=== PATIENT | female | born 1985 | race Hispanic/Latino ===

== ENCOUNTER 2017-09-26 18:07 | Emergency (ER) | payer OTHER, SELFPAY ==
--- OUTSIDE RECORDS SUMMARY | 2017-09-26 18:08 | XMS REPORT ---
:1985 [facility] [address] [place] [address] Care Team Providers Name Role Phone JAMIE TAVAREZDREW ADAMS Unavailable Unavailable Problems This patient has no known problems. Allergies, Adverse Reactions, Alerts This patient has no known allergies or adverse reactions. Medications This patient has no known medications. Results Test Description Test Time Test Comments Text Results Atomic Results Result Comments CREATINE KINASE (CK), TOTAL AND MB 2017-02-06 18:43:00 Test Item Value Reference Range Comments CREATINE KINASE TOTAL (BEAKER) (test ascy=003) 190 U/L 29-200 CREATINE KINASE-MB (BEAKER) (test ecij=708) 1.3 ng/mL 0.0-6.6 CREATINE KINASE-MB INDEX (BEAKER) (test rjlv=557) 0.7 % Effective 05/22/2014: CK-MB Reference Range ChangeNew: 0.0-6.6 Previous: 0.0- 4.9CK-MB Reference Range:<6.7 Normal6.7-10.0 Borderline>10.0 AbnormalTROPONIN [id number] 18:43:00 Test Item Value Reference Range Comments TROPONIN I (BEAKER) (test xrpi=342) < ng/mL 0.00-0.03 Effective 05/22/2014: Reference Range ChangeNew: 0.00-0.03 Previous 0.00- 0.15Troponin I (TnI) levels must be interpreted in the context of the presenting symptoms and the clinical findings. Elevated TnI levels indicate myocardial damage, but are not specific for ischemic heart disease. Elevated TnI levels are seen in patients with other cardiac conditions (including myocarditis and congestive heartfailure), and slight TnI elevations occur in patients with other conditions, including sepsis, renalfailure, acidosis, acute neurological disease, and persistent tachyarrhythmia.BASIC METABOLIC [id number] 18:39:00 Test Item Value Reference Range Comments SODIUM (BEAKER) (test 140 meq/L 136-145 cqgu=079) POTASSIUM (BEAKER) (test 3.8 meq/L 3.5-5.1 hlmu=437) CHLORIDE (BEAKER) (test 108 meq/L 98-107 fsku=343) CO2 (BEAKER) (test 23 meq/L 22-29 rbyx=790) BLOOD UREA NITROGEN 12 mg/dL 7-21 (BEAKER) (test pwmq=989) CREATININE (BEAKER) (test 0.60 mg/dL 0.57-1.25 bkcx=283) GLUCOSE RANDOM (BEAKER) 117 mg/dL 70-105 (test rqwr=812) CALCIUM (BEAKER) (test 8.7 mg/dL 8.4-10.2 aiwx=931) EGFR (BEAKER) (test mL/min/1.73 sq m INSUFFICIENT CLINICAL DATA pezc=1696) TO CALCULATE ESTIMATED GFR. CBC W/PLT COUNT & AUTO [id number] 18:12:00 Test Item Value Reference Range Comments WHITE BLOOD CELL COUNT (BEAKER) (test kgwt=180) 8.2 K/ L 3.5-10.5 RED BLOOD CELL COUNT (BEAKER) (test mrpp=696) 3.39 M/ L 3.93-5.22 HEMOGLOBIN (BEAKER) (test eyrm=651) 9.0 GM/DL 11.2-15.7 HEMATOCRIT (BEAKER) (test twlf=120) 28.6 % 34.1-44.9 MEAN CORPUSCULAR VOLUME (BEAKER) (test clpe=155) 84.4 fL 79.4-94.8 MEAN CORPUSCULAR HEMOGLOBIN (BEAKER) (test 26.5 pg 25.6-32.2 nbob=041) MEAN CORPUSCULAR HEMOGLOBIN CONC (BEAKER) (test 31.5 GM/DL 32.2-35.5 jwds=519) RED CELL DISTRIBUTION WIDTH (BEAKER) (test 13.8 % 11.7-14.4 esgg=752) PLATELET COUNT (BEAKER) (test dxwc=412) 289 K/CU MM 150-450 MEAN PLATELET VOLUME (BEAKER) (test egwc=152) 9.8 fL 9.4-12.3 NUCLEATED RED BLOOD CELLS (BEAKER) (test 0 /100 WBC 0-0 inpq=605) NEUTROPHILS RELATIVE PERCENT (BEAKER) (test 63 % rcig=025) LYMPHOCYTES RELATIVE PERCENT (BEAKER) (test 28 % ijwg=087) MONOCYTES RELATIVE PERCENT (BEAKER) (test 6 % wkvn=960) EOSINOPHILS RELATIVE PERCENT (BEAKER) (test 1 % aiwd=676) BASOPHILS RELATIVE PERCENT (BEAKER) (test 0 % igtq=456) NEUTROPHILS ABSOLUTE COUNT (BEAKER) (test 5.14 K/ L 1.56-6.13 atsg=004) LYMPHOCYTES ABSOLUTE COUNT (BEAKER) (test 2.28 K/ L 1.18-3.74 wbzy=776) MONOCYTES ABSOLUTE COUNT (BEAKER) (test 0.50 K/ L 0.24-0.36 wnvh=363) EOSINOPHILS ABSOLUTE COUNT (BEAKER) (test 0.07 K/ L 0.04-0.36 vcnz=889) BASOPHILS ABSOLUTE COUNT (BEAKER) (test 0.02 K/ L 0.01-0.08 pzoy=945) IMMATURE GRANULOCYTES-RELATIVE PERCENT (BEAKER) 2 % 0-1 (test dpwy=6919)
[2017-09-26] MEDS ORDERED: NA CHLORIDE 0.9% 1,000 ML ONE (18:48)
[2017-09-26] MEDS ORDERED: ONDANSETRON 4 MG/2 ML VIAL ONE (18:48)
[2017-09-26 18:57] LABS: Absolute Lymphocytes (CBC) 0.7 K/uL (0.7-4.9); Absolute Monocytes 0.4 K/uL (0.1-1.3); Absolute Neutrophil 9.8 K/uL (1.8-8.0); Basophils % 0.2 % (0-1.3); Eosinophils % 1.3 % (0-4.4); Hematocrit 40.1 % (36.0-45.0); Lymphocytes % 6.1 % (15.3-44.8); MCH 26.5 pg (27.0-35.0); MCV 80.2 fL (80-100); MPV 9.1 fL (7.6-11.3); Monocytes % 3.9 % (3.3-12.3); RBC Red Blood Cell Count 4.99 M/uL (3.86-4.86)
[2017-09-26 19:04] LABS: Bicarbonate 20 mEq/L (21-31); Glucose Level 113 mg/dL (65-120); Lipase 19 U/L (22-51); Potassium 3.6 mEq/L (3.6-5.0); Sodium Level 136 mEq/L (135-145)
[2017-09-26 19:11] LABS: ALT/SGPT 13 IU/L (10-60); AST/SGOT 20 IU/L (10-42); Albumin 4.1 g/dL (3.2-5.5); Alkaline Phosphatase 80 IU/L (42-121); Amylase Level 69 U/L (28-100); BUN Blood Urea Nitrogen 13 mg/dL (6-20); Bilirubin Direct 0.1 mg/dL (0-0.2); Bilirubin Total 0.7 mg/dL (0.3-1.2); Protein, Total 7.3 g/dL (6.0-8.3)
[2017-09-26 19:17] LABS: Urine Blood 2+ (NEG); Urine Glucose NEGATIVE (NEG); Urine Protein TRACE (NEG); Urine Specific Gravity >1.030 (1.005-1.030)
[2017-09-26 19:54] LABS: Urine Bacteria <20 /HPF (<20); Urine Culture Reflex Order NOT NEEDED; Urine RBC <5 /HPF (NONE SEEN)
--- NOTE | 2017-09-26 20:00 | EDPHYS ---
Physician Documentation [facility] Name: Brenda Tyler Age: 32 yrs Sex: Female : 1985 Arrival Date: 09/26/2017 Time: 18:08 Bed 28 Private MD: ED Physician Wang Villar HPI: 09/26 18:23 This 32 yrs old Female presents to ER via Ambulatory with complaints of kb Nausea/Vomiting/Diarrhea. 18:23 The patient presents to the emergency department with nausea, vomiting, diarrhea. kb Onset: The symptoms/episode began/occurred this morning. Possible causes: unknown. The symptoms are aggravated by food , The symptoms are alleviated by nothing. Associated signs and symptoms: Pertinent positives: diarrhea, nausea, vomiting, Pertinent negatives: abdominal pain, anorexia, belching, constipation, dysuria, fever, flatulence, GI bleeding, hematuria. Severity of symptoms: At their worst the symptoms were mild moderate in the emergency department the symptoms are unchanged. The patient has not experienced similar symptoms in the past. The patient has not recently seen a physician. 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 - Social history:: Smoking status: Patient/guardian denies using tobacco, never smoked. ROS: 18:22 Constitutional: Negative for fever, chills, and weight loss, Cardiovascular: Negative kb for chest pain, palpitations, and edema, Respiratory: Negative for shortness of breath, cough, wheezing, and pleuritic chest pain, Back: Negative for injury and pain, : Negative for injury, bleeding, discharge, and swelling, MS/Extremity: Negative for injury and deformity, Skin: Negative for injury, rash, and discoloration, Neuro: Negative for headache, weakness, numbness, tingling, and seizure. 18:22 Abdomen/GI: Positive for abdominal pain, nausea, vomiting, and diarrhea, Negative for constipation, abdominal cramps, abdominal distension, anorexia. Exam: 18:22 Constitutional: This is a well developed, well nourished patient who is awake, alert, kb and in no acute distress. Head/Face: Normocephalic, atraumatic. Chest/axilla: Normal chest wall appearance and motion. Nontender with no deformity. No lesions are appreciated. Cardiovascular: Regular rate and rhythm with a normal S1 and S2. No gallops, murmurs, or rubs. Normal PMI, no JVD. No pulse deficits. Respiratory: Lungs have equal breath sounds bilaterally, clear to auscultation and percussion. No rales, rhonchi or wheezes noted. No increased work of breathing, no retractions or nasal flaring. Abdomen/GI: Soft, non-tender, with normal bowel sounds. No distension or tympany. No guarding or rebound. No evidence of tenderness throughout. Back: No spinal tenderness. No costovertebral tenderness. Full range of motion. Skin: Warm, dry with normal turgor. Normal color with no rashes, no lesions, and no evidence of cellulitis. MS/ Extremity: Pulses equal, no cyanosis. Neurovascular intact. Full, normal range of motion. Neuro: Awake and alert, GCS 15, oriented to person, place, time, and situation. Cranial nerves II-XII grossly intact. Motor strength 5/5 in all extremities. Sensory grossly intact. Cerebellar exam normal. Normal gait. Vital Signs: 18:22 BP 110 / 76; Pulse 98; Resp 17; Temp 98.8; Pulse Ox 97% ; Weight 56.7 kg; Height 4 ft. rk2 10 in. (147.32 cm); 18:45 BP 109 / 72; Pulse 87; Resp 16; Pulse Ox 98% on R/A; rk2 19:47 BP 114 / 66; Pulse 82; Resp 16; Pulse Ox 100% on R/A; rk2 18:22 Body Mass Index 26.12 (56.70 kg, 147.32 cm) rk2 MDM: 18:12 Patient medically screened. kb 18:22 Data reviewed: vital signs, nurses notes. Data interpreted: Pulse oximetry: on room air kb is 100 %. Interpretation: normal. 19:59 Counseling: I had a detailed discussion with the patient and/or guardian regarding: the kb historical points, exam findings, and any diagnostic results supporting the discharge/admit diagnosis, lab results, the need for outpatient follow up, a family practitioner, to return to the emergency department if symptoms worsen or persist or if there are any questions or concerns that arise at home. 09/26 18:22 Order name: Amylase, Serum kb 09/26 18:22 Order name: Basic Metabolic Panel kb 09/26 18:22 Order name: CBC with Diff kb 09/26 18:22 Order name: Hepatic Function kb 09/26 18:22 Order name: Lipase kb 09/26 18:22 Order name: Urine Microscopic Only kb 09/26 19:05 Order name: Basic Metabolic Panel; Complete Time: 19:11 EDMS 09/26 19:05 Order name: Lipase; Complete Time: 19:11 EDMS 09/26 19:08 Order name: CBC with Automated Diff EDRI 09/26 19:11 Order name: Liver (Hepatic) Function; Complete Time: 19:11 EDMS 09/26 19:11 Order name: Amylase Level; Complete Time: 19:11 EDMS 09/26 19:15 Order name: Urine Dipstick--Ancillary (enter results) 09/26 19:15 Order name: Urine --Ancillary (enter results) 09/26 19:17 Order name: Urine --Ancillary; Complete Time: 19:22 EDMS 09/26 18:22 Order name: Urine Test (obtain specimen); Complete Time: 19:12 kb 09/26 18:22 Order name: IV Saline Lock; Complete Time: 18:36 kb 09/26 18:22 Order name: Labs collected and sent; Complete Time: 18:36 kb 09/26 18:22 Order name: Urine Dipstick-Ancillary (obtain specimen); Complete Time: 19:09 kb 09/26 19:12 Order name: PO challenge; Complete Time: 19:39 kb 09/26 19:17 Order name: Urine Dipstick-Ancillary; Complete Time: 19:22 EDMS 09/26 19:55 Order name: Urine Microscopic Only; Complete Time: 19:58 EDMS Administered Medications: 18:36 Drug: NS 0.9% 1000 ml Route: IV; Rate: 1000 ml; Site: right antecubital; rk2 19:30 Follow up: IV Status: Completed infusion rk2 19:30 Follow up: Response: No adverse reaction; IV Status: Completed infusion rk2 18:36 Drug: Zofran 4 mg Route: IVP; Site: right antecubital; rk2 19:38 Follow up: Response: No adverse reaction; Nausea is decreased rk2 Disposition: 09/26/17 19:59 Discharged to Home. Impression: Noninfective gastroenteritis and colitis, unspecified. - Condition is Stable. - Discharge Instructions: Food Choices to Help Relieve Diarrhea, Adult, Viral Gastroenteritis. - Prescriptions for Zofran 4 mg Oral Tablet - take 1 tablet by ORAL route every 6 hours As needed; 20 tablet. - Medication Reconciliation Form, Thank You Letter, Antibiotic Education, Prescription Opioid Use form. - Follow up: Emergency Department; When: As needed; Reason: Worsening of condition. Follow up: Private Physician; When: 2 - 3 days; Reason: Recheck today's complaints, Continuance of care, Re-evaluation by your physician. Addendum: 09/30/2017 07:27 Co-signature as Attending Physician, Wang Villar MD. g s Signatures: Dispatcher [employer] EDRI Cathy Rizo, TRAVELING PHLEBOTOMIST-C TRAVELING PHLEBOTOMIST-Ckb Wang Villar MD MD gs Kidder, Rhonda RN RN rk2
--- NOTE | 2017-09-26 20:00 | ER ---
Nurse's Notes [facility] Name: Brenda Tyler Age: 32 yrs Sex: Female : 1985 Arrival Date: 09/26/2017 Time: 18:08 Bed 28 Private MD: Diagnosis: Noninfective gastroenteritis and colitis, unspecified Presentation: 09/26 18:20 Presenting complaint: Patient states: Pt. c/o N/V/D, onset this a.m.... Back pain; rk2 which she normally has. Transition of care: patient was not received from another setting of care. Onset of symptoms was September 26, 2017. Care prior to arrival: None. 18:20 Method Of Arrival: Ambulatory rk2 18:20 Acuity: MAYKEL 3 rk2 Triage Assessment: 18:22 General: Appears in no apparent distress. slender, well groomed, well developed, well rk2 nourished, Behavior is calm, cooperative. Pain: Complains of pain in back. Neuro: Level of Consciousness is alert, obeys commands, Oriented to person, place, time, situation. Respiratory: Airway is patent Respiratory effort is even, unlabored, Respiratory pattern is regular, symmetrical. GI: Reports diarrhea, nausea, vomiting. 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 - Social history:: Smoking status: Patient/guardian denies using tobacco, never smoked. Screenin:25 Abuse screen: Denies threats or abuse. Nutritional screening: No deficits noted. rk2 Tuberculosis screening: No symptoms or risk factors identified. Fall Risk None identified. Assessment: 18:30 GI: Reports diarrhea, nausea, vomiting. rk2 19:10 Reassessment: Pt. resting in room, iv fluids infusing. Pt. has had improvement with rk2 nausea after medication. Pt. appears to be in no obvious distress \T\ this time. No needs voiced. 19:44 GI: Abdomen is flat. rk2 19:44 Reassessment: Pt. able to keep fluids down, nausea has improved. rk2 Vital Signs: 18:22 BP 110 / 76; Pulse 98; Resp 17; Temp 98.8; Pulse Ox 97% ; Weight 56.7 kg; Height 4 ft. rk2 10 in. (147.32 cm); 18:45 BP 109 / 72; Pulse 87; Resp 16; Pulse Ox 98% on R/A; rk2 19:47 BP 114 / 66; Pulse 82; Resp 16; Pulse Ox 100% on R/A; rk2 18:22 Body Mass Index 26.12 (56.70 kg, 147.32 cm) rk2 ED Course: 18:08 Patient arrived in ED. as 18:12 Cathy Rizo FNP-C is [facility]. kb 18:12 Wang Villar MD is Attending Physician. kb 18:20 Torrie Crain, RN is Primary Nurse. rk2 18:21 Triage completed. rk2 18:22 Arm band placed on. rk2 18:25 Patient has correct armband on for positive identification. Bed in low position. Call rk2 light in reach. 20:08 No provider procedures requiring assistance completed. IV discontinued. rk2 Administered Medications: 18:36 Drug: NS 0.9% 1000 ml Route: IV; Rate: 1000 ml; Site: right antecubital; rk2 19:30 Follow up: IV Status: Completed infusion rk2 19:30 Follow up: Response: No adverse reaction; IV Status: Completed infusion rk2 18:36 Drug: Zofran 4 mg Route: IVP; Site: right antecubital; rk2 19:38 Follow up: Response: No adverse reaction; Nausea is decreased rk2 Outcome: 19:59 Discharge ordered by . kb 20:08 Discharged to home ambulatory. rk2 20:08 Condition: good 20:08 Discharge instructions given to patient, Prescriptions given X 1. 20:08 Patient left the ED. rk2 Signatures: Cathy Rizo FNP-C FNP-Candie Boyer as Torrie Crain, RN RN rk2
[2017-09-26 20:43] LABS: Blood Morphology Comment NOT SEEN (NOT SEEN); Platelet Estimate ADEQ; Urine White Blood Cell Casts OK
== END 2017-09-26 20:08 | disposition home or self-care (01) ==
LOC: ER 18:07
DX: K52.9 Noninfective gastroenteritis and colitis, unspecified (principal); F43.10 Post-traumatic stress disorder, unspecified
CPT/HCPCS: 36415; 80048; 80076; 81003; 81015; 81025; 82150; 83690; 85025; 96361; 96374; 99283; J2405; J7030